=== PATIENT | male | born 1955 | race Caucasian/White ===

== ENCOUNTER 2016-07-10 13:43 | Emergency (ER) | payer BC, OTHER ==
[2016-07-10 13:50] VITALS: BP 178/101
[2016-07-10] MEDS ORDERED: Tetan/Diph/Pertus SYR(Tdap)* 0.5 ML SYR(BOOSTRIX) use SYR IM ONE (14:33)
[2016-07-10] MEDS ORDERED: Ibuprofen TAB* 400 MG PO ONE (14:33)
--- NOTE | 2016-07-10 15:01 | ED ---
Laceration/Wound HPI - History of Current Complaint Stated Complaint: RT THUMB INJURY/WC Time Seen by Provider: 07/10/16 13:55 Hx Obtained From: Patient Mechanism of Injury: Sharp/Blunt Trauma Onset/Duration: Sudden Onset, Lasting Hours, Still Present Aggravating: Movement Alleviating: Nothing Timing: Constant Onset Severity: Severe Current Severity: Moderate Pain Intensity: 5 Associated Signs & Symptoms: Pain Related Hx: Dominant Hand (Right) - Allergy/Home Medications Allergies/Adverse Reactions: Allergies Allergy/AdvReac Type Severity Reaction Status Date / Time Cat Hair Extract Allergy Unknown Swelling Verified 02/06/15 13:21 Of Face,Lips,& Throat Wheat Extract Allergy Unknown Swelling Verified 02/06/15 13:21 Of Face,Lips,& Throat dairy Allergy Severe Swelling Uncoded 02/06/15 13:20 ENVIRONMENTAL-MOLD,MILDEW,BIRDS, Allergy SWELLING Uncoded 02/06/15 13:20 OF FACE,LIPS,&THROAT Home Medications: Home Medications Ventolin HFA Inhaler* 2 puff INH PRN 07/10/16 [History] PMH/Surg Hx/FS Hx/Imm Hx Endocrine/Hematology History: Denies: Hx Bone Marrow Disease, Hx Diabetes, Hx Sickle Cell Disease, Hx Thyroid Disease, Hx Anemia Cardiovascular History: Reports: Hx Hypertension - MED Denies: Hx Angina, Hx Cardiomegaly, Hx Congestive Heart Failure, Hx Coronary Artery Disease, Hx Pacemaker/ICD, Hx Peripheral Vascular Disease, Hx Rheumatic Fever, Hx Valvular Heart Disease, Other Cardiovascular Problems/Disorders Respiratory History: Reports: Hx Sleep Apnea - current CPAP user Denies: Hx Asthma, Hx Pulmonary Edema, Hx Pulmonary Embolism, Other Respiratory Problems/Disorders GI History: Reports: Hx Gall Bladder Disease - removed 09/2011, Hx Hiatal Hernia - 10/2009 repair same time as gastric lap band Denies: Hx Cirrhosis, Hx Crohn's Disease, Hx Gastroesophageal Reflux Disease , Hx Irritable Bowel, Hx Jaundice, Hx Ulcer, Other GI Disorders History: Reports: Hx Kidney Stones Denies: Hx Kidney Infection, Hx Renal Disease - right sided, Other Problems/Disorders Musculoskeletal History: Reports: Hx Back Problems - chronic low back pain, resolved after (left) hip replacement Denies: Hx Arthritis, Hx Bursitis, Hx Tendonitis, Other Musculoskeletal History Sensory History: Reports: Hx Contacts or Glasses Denies: Hx Cataracts, Hx Glaucoma, Hx Hearing Aid Opthamlomology History: Reports: Hx Contacts or Glasses Denies: Hx Cataracts, Hx Glaucoma Neurological History: Denies: Hx Headaches, Hx Migraine, Hx Seizures, Other Neuro Impairments/ Disorders Psychiatric History: Denies: Hx Anxiety, Hx Depression, Hx Panic Disorder - Cancer History Hx Chemotherapy: No - Surgical History Surgery Procedure, Year, and Place: [place] [facility] [place]. [place] [facility] [place] w/hiatal hernia repair. 09/2011 [facility] [place] chole[place]. vasectomy; knee meniscus. tonsils/adenoids. KIDNEY STONE - LITHROTRIPSY Hx Anesthesia Reactions: Yes - "blood preesure dropped during hip surgery" Infectious Disease History: No Infectious Disease History: Denies: Hx Clostridium Difficile, Hx Hepatitis, Hx Human Immunodeficiency Virus (HIV), Hx of Known/Suspected MRSA, Hx Shingles, Hx Tuberculosis, Hx Known/ Suspected VRE, Hx Known/Suspected VRSA, History Other Infectious Disease, Traveled Outside the in Last 30 Days - Family History Known Family History: Positive: None - Social History Occupation: Employed Full-time Lives: With Family Alcohol Use: Rare Substance Use Type: Reports: None Smoking Status (MU): Former Smoker Amount Used/How Often: ?/DAY X 37 YEARS Have You Smoked in the Last Year: No Review of Systems Positive: Edema - mild distal right thumb Positive: Other - nail avulsion of the right thumb Negative: Paresthesia, Numbness All Other Systems Reviewed And Are Negative: Yes Physical Exam Triage Information Reviewed: Yes Vital Signs On Initial Exam: Initial Vitals Temp Pulse Resp BP Pulse Ox 97.7 F 65 20 178/101 97 07/10/16 13:46 07/10/16 13:46 07/10/16 13:46 07/10/16 13:46 07/10/16 13:46 Vital Signs Reviewed: Yes Appearance: Positive: Well-Appearing, Pain Distress, Obese Skin: Positive: Warm, Skin Color Reflects Adequate Perfusion, Dry, Tender - distal right thumb, Soft Head/Face: Positive: Normal Head/Face Inspection Eyes: Positive: EOMI, LESLEY, Conjunctiva Clear ENT: Positive: Hearing grossly normal Respiratory/Lung Sounds: Positive: Breath Sounds Present Cardiovascular: Positive: RRR Musculoskeletal: Positive: Strength/ROM Intact, Pain @ - distal right thumb, Edema Right - distal right thumb Neurological: Positive: Sensory/Motor Intact, Alert, Oriented to Person Place, Time, NV Bundle Intact Distally Psychiatric: Positive: Affect/Mood Appropriate AVPU Assessment: Alert Procedures - Laceration/Wound Repair 1 Location: upper extremity - right thumb Description: Irregular Anesthesia: Local, 2.0%, Lido Length, Depth and Shape: Crush injury with partial nail avulsion. Lateral aspect of proximal nail is dislodged. Betadine Prep?: No Irrigated w/ Saline (ccs): 200 Laceration/Wound Explored: clean Closure: Single Layer - Nail reimplanted and secured with suture Debridement: minimal Suture Type: Nylon - 4.0 Number of Sutures: 3 Layer Closure?: No Sterile Dressing Applied?: Yes Diagnostics - Vital Signs Vital Signs Temp Pulse Resp BP Pulse Ox 07/10/16 13:46 97.7 F 65 20 178/101 97 - Laboratory Lab Statement: Any lab studies that have been ordered have been reviewed, and results considered in the medical decision making process. - Radiology No standard instances Xray Interpretation: No Acute Changes Radiology Interpretation Completed By: Radiologist Laceration Repair Course/Dx - Differential Dx Differental Diagnoses: Abrasion, Avulsion, Dehiscence, Hematoma, Laceration, Puncture Wound - Clinical Impression Provider Diagnoses: Crushing injury of right thumb, Nail avulsion, finger Discharge - Discharge Plan Condition: Stable Disposition: HOME Patient Education Materials: Nail Avulsion (ED) Forms: *Work Release Referrals: Marquez Fiore MD [Primary Care Provider] - Solo Ohara MD [Medical Doctor] - Additional Instructions: Please call Dr. Sumner's the hand surgeon for a follow-up consultation. Keep your dressing clean, dry and in place for the next 24 hours. You may then remove and shower. Pat dry and cover with a clean, dry band-aid if you are going to be in a "dirty" environment, otherwise it can remain open to air. Do not soak the wound in any body of water until the sutures are removed. Elevate the hand above your heart and use Ibuprofen 600mg three times daily with meals for the next 5-7 days to reduce pain and swelling. Please follow the instructions for suture removal from the hand surgeon. Return to the emergency department sooner if your symptoms worsen.
--- NOTE | 2016-07-10 15:09 | RAD ---
HISTORY: Crush injury, first digit of right hand COMPARISONS: None VIEWS: 3, Frontal, lateral, and oblique views of the first digit of the right hand FINDINGS: BONE DENSITY: There is diffuse osteopenia. BONES: There is no displaced fracture or dislocation. There is well-corticated nonaggressive appearing sclerotic lesion of the distal phalanx of the first digit suggestive of a giant bone island. JOINTS: There is osteoarthritis of the interphalangeal joints and first CMC joint and first MCP joint ALIGNMENT: There is no dislocation. SOFT TISSUES: Unremarkable. OTHER FINDINGS: None. IMPRESSION: 1. OSTEOPENIA. 2. OSTEOARTHRITIS. 3. NO ACUTE OSSEOUS INJURY. IF SYMPTOMS PERSIST, RECOMMEND REPEAT IMAGING.
== END 2016-07-10 16:24 | disposition home or self-care (01) ==
LOC: ED 13:43
DX: S67.01XA Crushing injury of right thumb, initial encounter (principal); S61.101A Unspecified open wound of right thumb with damage to nail, initial encounter; Z87.891 Personal history of nicotine dependence; M85.80 Other specified disorders of bone density and structure, unspecified site; I10 Essential (primary) hypertension; G47.30 Sleep apnea, unspecified; Z87.442 Personal history of urinary calculi; X58.XXXA Exposure to other specified factors, initial encounter; Y92.9 Unspecified place or not applicable
CPT/HCPCS: 11760; 90471; 90715; 99282; A9270-GY

== ENCOUNTER 2016-07-22 05:50 | Inpatient (IN) | payer BC ==
--- NOTE | 2016-07-16 16:43 | HP ---
HISTORY AND PHYSICAL: DATE OF ADMISSION: He is entering the hospital for right total knee replacement on 07/22/16. CHIEF COMPLAINT: Right knee pain and deformity. HISTORY OF PRESENT ILLNESS: This 61-year-old man has had severe arthritis of the right knee for the past year, increasing pain and problems with limited walking distance, difficulty with stairs, he has been using the brace, and because of the severe arthritis and it has been no longer responsive to nonoperative care, we have recommended a right total knee replacement. PAST MEDICAL HISTORY: He has a history of kidney stones. MEDICATIONS: 1. He used an inhaler for asthma. 2. Centrum Silver once a day. 3. Aspirin 81 mg each day. 4. Prilosec. ALLERGIES: He is allergic to WHEAT, MILK, and ENVIRONMENTAL THINGS. He is not allergic to penicillin and he is okay to have Ancef. SOCIAL HISTORY: He stopped smoking in 2008. He has a rare alcoholic drink. REVIEW OF SYSTEMS: No history of any liver problems. No cancers. No history of chest pain and no history of shortness of breath PHYSICAL EXAMINATION GENERAL: Current examination, antalgic gait on the right with right knee varus deformity. VITAL SIGNS: The height is 65 inches, weight 210, blood pressure 140/82, pulse is 86, temperature is 97, respirations are 14. HEENT: Head is NC/AT. LUNGS: Clear bilaterally. HEART: Regular. S1, S2 normal. No murmurs or gallops. ABDOMEN: Round, soft, nontender. There is no organomegaly. MUSCULOSKELETAL: Right knee limited extension, stable MCL and LCL. Some effusion. The posterior tibial pulse is 2+ on the right. NEUROLOGICAL: Cranial nerves are grossly intact. DIAGNOSTIC STUDIES: The x-ray shows severe arthritis of the right knee in the medial compartment with [id number], sclerosis, osteophyte formation, and varus. IMPRESSION: Severe arthritis of the right knee. PLAN: Right total knee replacement. Goals, risks, and complications have been reviewed with him and his questions were answered. [id number]/CPS #: [id number] MTDD
[2016-07-22] MEDS ORDERED: Buffered Lidocaine 1% SYR 3ML* 3 ML/SYR SYRINGE INTRADERM ONE (06:00)
[2016-07-22] MEDS ORDERED: Famotidine IV* 10 MG/ML 2 ML (20 mg) IV ONE (06:00)
[2016-07-22] MEDS ORDERED: Dexamethasone IV* 4 MG/ML 1 ML (4 MG) IV SLOW PU ONE (06:00)
[2016-07-22] MEDS ORDERED: ceFAZolin 2 GM PREMIX (*) 2 GM/50 ML BAG IVPB ONE (06:09)
[2016-07-22] MEDS ORDERED: Dexamethasone IV* 4 MG/ML 1 ML (4 MG) ONE (06:09)
[2016-07-22] MEDS ORDERED: Famotidine IV* 10 MG/ML 2 ML (20 mg) ONE (06:09)
[2016-07-22] MEDS ORDERED: Buffered Lidocaine 1% SYR 3ML* 3 ML/SYR SYRINGE ONE (06:10)
[2016-07-22] MEDS ORDERED: Midazolam* 1 MG/ML 5 ML VIAL (5 MG) ONE (06:54)
[2016-07-22] MEDS ORDERED: Morphine PF AMP (0.5MG/ML)* 5 MG/10 ML AMP ONE (06:54)
[2016-07-22] MEDS ORDERED: fentaNYL* 50 MCG/ML 2 ML VIAL (100 MCG VIAL) ONE (06:54)
[2016-07-22] MEDS ORDERED: DiMENhydriNATE IV* 50 MG/ML VIAL IV PUSH PRN ×2 (07:15→11:21)
[2016-07-22] MEDS ORDERED: PROCHLORPERAZINE INJ 5 MG/ML 2 ML VIAL IV PRN ×2 (07:15→11:21)
[2016-07-22] MEDS ORDERED: Scopolamine 1.5 mg* PATCH TRANSDERM PRN (07:15)
[2016-07-22] MEDS ORDERED: Ondansetron INJ* 2 MG/ML VIAL IV PRN ×3 (07:15→23:50)
[2016-07-22] MEDS ORDERED: fentaNYL* 50 MCG/ML 2 ML VIAL (100 MCG VIAL) IV PRN (07:15)
[2016-07-22] MEDS ORDERED: Propofol* 10 MG/ML 20 ML BTL IV PUSH ONE (08:04)
[2016-07-22] MEDS ORDERED: Dexmedetomidine* 200 MCG/2 ML 2 ML VIAL ONE (08:04)
[2016-07-22] MEDS ORDERED: Bupivacaine 0.5% SDV PF* 30 ML VIAL ONE ×2 (08:04→10:27)
[2016-07-22] MEDS ORDERED: traZODone TAB* 50 MG TAB PO PRN (11:15)
[2016-07-22] MEDS ORDERED: Acetaminophen TAB* 325 MG PO PRN (11:15)
[2016-07-22] MEDS ORDERED: Naloxone* 0.4 MG/ML 1 ML VIAL IV PRN (11:21)
[2016-07-22] MEDS ORDERED: oxyCODONE/Acetamin 5/325 MG* TAB PO PRN ×2 (11:21→23:50)
[2016-07-22] MEDS ORDERED: diPHENhydraMINE IV* 50 MG/ML 1 ml VIAL (BENADRYL) IV PRN ×2 (11:21→23:50)
[2016-07-22] MEDS ORDERED: Nalbuphine* 20 MG/ML 1 ML VIAL IV PRN (11:21)
[2016-07-22] MEDS ORDERED: Albuterol HFA INHALER* 8 gm MDI INH PRN (11:31)
--- NOTE | 2016-07-22 12:09 | RAD ---
Indication: Postop right knee replacement. 2 views of the right knee demonstrates bipolar knee arthroplasty in satisfactory position. IMPRESSION: Right knee replacement in satisfactory position.
[2016-07-22] MEDS: ceFAZolin 1 GM in Dextrose (*) 1 GM/50 ML BAG IVPB SCH ×2 (16:13→21:54)
[2016-07-22] MEDS: Lisinopril TAB* 10 MG PO SCH (18:00)
[2016-07-22] MEDS: Ferrous Sulfate TAB* 325 MG PO SCH (20:20)
[2016-07-22] MEDS: Docusate CAP* 100 MG PO SCH (20:21)
--- NOTE | 2016-07-22 21:06 | OP ---
DATE OF OPERATION: 07/22/16 - ROOM #331 DATE OF : 51 SURGICAL CARE: Right knee. SURGEON: Martín Gray MD BIOSTATISTICS PROFESSOR: MIKE Vazquez STARTING SHEET TANK OPERATOR: Coco Mcdowell, registered nurse surgical services. ANESTHESIOLOGIST: Flynn Willett MD ANESTHESIA: Right saphenous nerve block right thigh and spinal with Duramorph IV sedation. PRE-OP DIAGNOSIS: Right knee severe arthritis in the medial compartment bone on bone with varus deformity. POST-OP DIAGNOSIS: Right knee severe arthritis in the medial compartment bone on bone with varus deformity and moderate to severe patellofemoral arthritis as well. OPERATIVE PROCEDURE: Right total knee replacement. COMPONENTS: Edin Persona knee posterior stabilized size 10 femur, a size F tibia, a 35 patella, and a 10 articular surface. COMPLICATIONS: There were no complications. DRAINS: Two blood collections drains, right knee at the end of the case. ESTIMATED BLOOD LOSS: 250 mL. REPLACEMENT: Crystalloid fluids. OPERATIVE INDICATIONS: Severe arthritis with deformity and it has been no longer responsive to nonoperative care. DESCRIPTION OF PROCEDURE: The patient was brought to the operating room and placed on the operating room table in a supine position. Following the administration of the anesthetic done supine on his thigh and in sitting position for the spinal and he was returned to the supine position, a Cox catheter was inserted. The right proximal thigh was wrapped with a tourniquet. The right knee was noted to have a few degrees of flexion contracture and the foot pulses were 2+ both of them. The right leg was given a preliminary Chlorhexidine prep after the tourniquet was applied to the proximal thigh and the final prep was done with ChloraPrep from the tourniquet to the tips of the toes. After prepping and draping and sealing off, we did our universal protocol time-out confirming Fady Beal, and a plan for right total knee replacement. We all agreed and we proceeded. The surgical care was done without tourniquet except at the clean up and cementing phase of the case when the tourniquet was utilized. Most of the surgery was done with a knee acutely flexed. The surgical incision went from 2 fingerbreadths proximal to the superior pole of the patella to the medial aspect of the tibial tubercle. The patient had some prepatellar bursitis with clear fluid and some scarring. The knee was noted medial, parapatellar, and the knee joint had clear goldish synovial fluid abundant. His tissues around the knee were edematous and had clear fluid within them. After entering, careful hemostasis was checked and achieved throughout the case utilizing electrocautery. On the tibia, the anteromedial soft tissues were elevated subperiosteally going around to the deep MCL and then to the posterior medial corner of the knee. The patient had complete eburnation of bone medial tibial plateau, medial femoral condyle both of large osteophytes closing the intercondylar notch, osteophytes were large on the patella, superiorly, inferiorly, mediolateral and loss of cartilage there as well. The patella was made so that it could be everted and the infrapatellar fat pad was removed. Synovectomy completed around the patella. His ACL had edema and was thickened, but was in continuity. The ACL was carefully removed after removing osteophytes. The PCL was uplifted from its femoral origins and with the medial release and the posterior medial release, the tibia was made so that it could gradually be subluxated for from under the femur. The lateral meniscus was carefully excised and in the course of the case , the lateral geniculate was visualized and carefully coagulated. The distal anterior femur was exposed subperiosteally for referencing and measuring. Some superior and medial synovectomy was completed. The anterior horn of the medial meniscus was carefully excised. The proximal tibial cut was made. First our goal here was to remove just a 1 mm or 2 from the medial tibia and 10 to 15 cm from the lateral tibia and have a tibial surface that would be perpendicular to the long axis of the tibia and have a slight posterior slope. After this cut was completed, the tibia later had to be cut by 4 more millimeters because we are tied in extension and flexion. The femoral intramedullary drill was utilized. The femoral canal was suctioned to discourage embolization. The femoral cutter distally was applied with 6 degrees of valgus and on the one because of some flexion and contracture. The distal femoral cut was completed. The extension gap looked a little bit tight and was a little tight. We then finished removal of the posterior horn lateral meniscus, the PCL posterior horn medial meniscus carefully preserving the MCL and in the osteophyte posteromedial femoral condyle. At this point, we were tied in extension and flexion. The tibia was re-cut by 4 mm and this allowed nice ligamentous balance in extension with a 10 mm block and a 90 degrees of flexion with a 10 mm block. The large tibial osteophyte was removed medially and posteromedially. The femur was completed for the size 10 with anterior and posterior chamfering and anterior and posterior cuts. The femur was then completed with the intercondylar cut out and anchoring holes made in the condyle. The tibia was completed for the size after the knee was articulated and extended with an F tibia, 10 articular surface and the 10 femur with full knee extension, stable ligaments in extension, and stable ligaments in 90 degrees of flexion. The patella was cut flat and 35 was chosen. Three drill holes were made and these were under cut. A lateral release was not necessary. The leg was exsanguinated. The tourniquet elevated to 275. The femoral canal was cleaned x6 with saline suctioned empty bone plug inserted. The knee was cleaned in extension with 2 L of pulsed saline irrigation including medial and lateral gutters. The knee was flexed. Retractors were put into position and all the bony surfaces were cleaned in flexion with pulsed saline once again and all surfaces were dried. The cement was mixed and the components were cemented into position, patella followed by tibia, followed by femur, each component was impacted, excess cement was removed and the knee was articulated and extended during the final hardening. The pericapsular soft tissues were infiltrated with Marcaine 0.5% with epinephrine posteromedial, medial, and lateral. We checked posteriorly and irrigated carefully with saline. A careful hemostasis was checked and achieved during the closure. The quadriceps mechanism reapproximated with interrupted #1 Polysorb sutures in a [id number] fashion. The opening here went 3 to 4 cm proximal to the superior pole of the patella staying as close to the vastus medialis muscle as possible for good tendon healing. The closure then down to the medial retinaculum. Drains were brought out to superolateral suprapatellar pouch. We irrigated during closure twice with pulse saline once again and watched for careful hemostasis. The distal tissues were closed with interrupted 0 Polysorb. The deep bursa closed with 0 Polysorb, the superficial subcu closed with a 3-0 Polysorb, and then the skin closed with kati. The skin was washed and dried and covered with Betadine soaked release on the surgery and the 2 drains and sterile gauze, sterile Webril, cryotherapy cuff, 2 ABD pads, 2 loosely applied 6-inch Chao bandages. The knee was extended completely and flexed completely during closure multiple times flexing the knee while pass 120 degrees and at the end of the case, the dorsalis pedis and posterior tibial pulses were both noted to be 2+. The dressing was completed and the patient returned to the hospital brought into recovery room in stable and satisfactory condition and having tolerated the procedure very well. CC: Dr. Fiore, [facility] * [id number] #: [id number] MTDD
[2016-07-22] MEDS ORDERED: oxyCODONE TAB* 5 MG TAB PO PRN (23:50)
[2016-07-23] MEDS: ceFAZolin 1 GM in Dextrose (*) 1 GM/50 ML BAG IVPB SCH (04:08)
[2016-07-23] MEDS: Morphine INJ* 2 MG/ML 1 ML CARPUJECT IV PRN ×2 (04:15→19:29)
[2016-07-23] MEDS: oxyCODONE/Acetamin 5/325 MG* TAB PO PRN ×4 (04:17→23:36)
[2016-07-23 06:12] LABS: Hematocrit 31 % (42-52); Hemoglobin 10.4 g/dl (14.0-18.0)
[2016-07-23 06:30] LABS: BUN/Creatinine Ratio 27.5 (8-20); Calcium 8.6 mg/dL (8.6-10.3); EGFR African American 125.6 (>60); EGFR Non-African American 97.6 (>60); Potassium 3.5 mmol/L (3.5-5.0)
[2016-07-23] MEDS: oxyCODONE TAB* 5 MG TAB PO PRN ×3 (07:13→17:41)
[2016-07-23] MEDS ORDERED: Pneumococcal *Vac Polyvalent 0.5 ML VIAL IM ONE (09:00)
[2016-07-23] MEDS: Aspirin TAB* 325 MG PO SCH (10:10)
[2016-07-23] MEDS: Ferrous Sulfate TAB* 325 MG PO SCH ×2 (10:11→20:55)
[2016-07-23] MEDS: amLODIPine TAB* 5 MG PO SCH (10:11)
[2016-07-23] MEDS: Vitamin THERAPEUTIC TAB PO SCH (10:11)
[2016-07-23] MEDS: Docusate CAP* 100 MG PO SCH ×2 (10:16→20:55)
[2016-07-23] MEDS: Enoxaparin(*) 30 MG/0.3 ML SYR SUBCUT SCH (12:27)
[2016-07-23] MEDS: Lisinopril TAB* 10 MG PO SCH (17:37)
[2016-07-24] MEDS: oxyCODONE TAB* 5 MG TAB PO PRN ×2 (05:05→22:01)
[2016-07-24] MEDS ORDERED: Magnesium Hydroxide LIQ* 30 ML UDC PO PRN (07:00)
[2016-07-24 07:06] LABS: Hematocrit 32 % (42-52); Hemoglobin 10.9 g/dl (14.0-18.0)
[2016-07-24] MEDS: Morphine INJ* 2 MG/ML 1 ML CARPUJECT IV PRN ×2 (08:15→17:14)
[2016-07-24] MEDS ORDERED: Morphine INJ* 4 MG/ML 1 ML CARPUJECT IV ONE (09:00)
[2016-07-24] MEDS: Vitamin THERAPEUTIC TAB PO SCH (10:00)
[2016-07-24] MEDS: Aspirin TAB* 325 MG PO SCH (10:00)
[2016-07-24] MEDS: Ferrous Sulfate TAB* 325 MG PO SCH ×2 (10:01→22:01)
[2016-07-24] MEDS: Docusate CAP* 100 MG PO SCH ×2 (10:01→22:01)
[2016-07-24] MEDS: amLODIPine TAB* 5 MG PO SCH (10:01)
[2016-07-24] MEDS: Enoxaparin(*) 30 MG/0.3 ML SYR SUBCUT SCH (12:07)
[2016-07-24] MEDS: oxyCODONE/Acetamin 5/325 MG* TAB PO PRN ×2 (12:10→15:24)
[2016-07-24] MEDS: Lisinopril TAB* 10 MG PO SCH (17:09)
[2016-07-25] MEDS: Morphine INJ* 2 MG/ML 1 ML CARPUJECT IV PRN (00:17)
[2016-07-25] MEDS: oxyCODONE/Acetamin 5/325 MG* TAB PO PRN (03:46)
[2016-07-25 06:58] LABS: Hematocrit 35 % (42-52); Hemoglobin 11.4 g/dl (14.0-18.0)
[2016-07-25] MEDS ORDERED: Scopolamine PATCH Remove* 1 NOTE MISC PATCH OFF ONE (07:15)
--- NOTE | 2016-07-25 07:34 | PN ---
Progress Note - Progress Note SOAP: Subjective: [61 y/o male s/p R TKA 07/22/2016. Patient in pain this AM, did not have pain medication yet, states pain medication takes away pain very well and does not have side effects such as N/V. Working well with PT, a bit apprehensive about going home. Reviewed with Physical therapist- reports patient meeting goals well. ] Objective: [General- Well appearing, NAD. MSK- Incision R knee C/D/I, no erythema, kati intact. Moderate swelling over knee, mild tenderness to light touch, Neg HOmans B/L, sensation to light touch intact. PT pulses 2+ b/l. + Dorsi/ plantarflexion. ] Vital Signs Temp Pulse Resp BP Pulse Ox 99.8 F 92 16 163/81 92 07/25/16 00:19 07/25/16 00:19 07/25/16 05:46 07/25/16 00:19 07/25/16 00:19 Laboratory Results - last 24 hr 07/25/16 06:11 Hgb 11.4 L Hct 35 L Assessment: [61 y/o male s/p R TKA 07/22/2016] Plan: [- DVT prophy- ASA daily - Continue home PT/ OT - Follow up with Dr. Gray within 4 weeks - [place] to be removed by [facility] - D/C today. - Continue pain regimen ]
[2016-07-25 07:55] VITALS: BP 142/77
[2016-07-25] MEDS: Aspirin TAB* 325 MG PO SCH (08:33)
[2016-07-25] MEDS: Vitamin THERAPEUTIC TAB PO SCH (08:33)
[2016-07-25] MEDS: amLODIPine TAB* 5 MG PO SCH (08:33)
[2016-07-25] MEDS: Ferrous Sulfate TAB* 325 MG PO SCH (08:33)
[2016-07-25] MEDS: Docusate CAP* 100 MG PO SCH (08:33)
[2016-07-25] MEDS: oxyCODONE TAB* 5 MG TAB PO PRN (08:45)
--- NOTE | 2016-07-25 11:14 | DS ---
Discharge Summary Date of Admission: 07/22/2016 Date of Discharge: 07/25/2016 Provider: Esequiel Gray Principle Diagnosis: RIGHT total knee replacement due to severe end stage OA Secondary Diagnoses: See H&P Principle procedure: RIGHT total knee arthroplasty Consultations: Physical therapy, occupational therapy. HPI: Refer to H&P Hospital Course: The patient was admitted on 07/22/2016 and underwent a right total knee arthroplasty. He tolerated the procedure well and there were no complications. The patient had a nerve block with general anesthesia and was quite comfortable in the immediate postoperative period. On POD#1 the patients H&H was 10.4/31. Dressing was CDI, he was neurovascularly intact with good sensation distal to the right knee. He could demonstrate dorsi and plantar flexion with good strength. Participation in physical and occupational therapy was begun. Pain management was controlled with PO percocet. On POD#2 the urinary catheter was discontinued and the patient was able to void spontaneously. The dressing was changed and the wound was found to be benign with minimal drainage and erythema. Vital signs were stable and the patient was afebrile. POD#3 bowel and bladder had normalized and the patient was cleared by physical therapy for safe discharge to home with services. He will continue with the exercises learned with physical therapy and arrangements were made for visiting home physical therapy as well. At discharge the H&H was 11.4/ 35 and vital signs were stable. The patient was discharged home with Aspirin 325mg daily for DVT prophylaxis. The patient will resume the home medications as indicated in the discharge instructions. [place] will be removed in 10-14 days by VNS. New medications at discharge: Percocet 5/325 mg 1-2 tabs po Q4-6 hours prn pain Colace 100 mg 1 po BID Aspirin 325 mg PO daily Condition: Stable Disposition: Home with home health and PT. Follow up: Patient will follow up with Dr. Gray in 4 weeks at [facility] Orthopedics Vital Signs Temp 98.2 F 07/25/16 07:39 Pulse 83 07/25/16 07:39 Resp 17 07/25/16 10:45 BP 142/77 07/25/16 07:39 Pulse Ox 96 07/25/16 08:00 Intake & Output 07/24/16 07/25/16 07/25/16 18:59 06:59 18:59 Intake Total 1020 1300 Output Total 1475 825 Balance -455 475 Intake: Oral 1020 1300 Output: Urine 1425 825 Emesis 50 Active Medications Generic Name Dose Route Start Last Admin Trade Name Freq PRN Reason Stop Dose Admin Acetaminophen 650 mg 07/22/16 11:15 Tylenol Tab* PO Q4H PRN PAIN OR TEMPERATURE Albuterol 2 puff 07/22/16 11:31 Ventolin Hfa Inhaler* INH Q4H PRN Allergy Symptoms Amlodipine Besylate 5 mg 07/23/16 09:00 07/25/16 08:33 Norvasc Tab* PO 5 mg DAILY CANDIS Administration Aspirin 325 mg 07/23/16 09:00 07/25/16 08:33 Aspirin Tab* PO 325 mg DAILY CANDIS Administration Diphenhydramine HCl 25 mg 07/22/16 23:50 Benadryl Iv* IV Q6H PRN itching Docusate Sodium 100 mg 07/22/16 21:00 07/25/16 08:33 Colace Cap* PO 100 mg BID CANDIS Administration Enoxaparin Sodium 30 mg 07/23/16 12:00 07/24/16 12:07 Lovenox(*) SUBCUT 30 mg Q24H CANDIS Administration Ferrous Sulfate 325 mg 07/22/16 21:00 07/25/16 08:33 Ferrous Sulfate Tab* PO 325 mg BID CANDIS Administration Lactated Ringer's 1,000 mls @ 100 mls/hr 07/22/16 12:00 07/23/16 11:31 Lactated Ringers 1000 Ml Bag* IV 100 mls/hr PER RATE CANDIS Administration Lisinopril 40 mg 07/22/16 18:00 07/24/16 17:09 Prinivil Tab* PO 40 mg QPM CANDIS Administration Magnesium Hydroxide 30 ml 07/24/16 07:00 07/24/16 22:01 Milk Of Magnesia Liq* PO 30 ml Q6H PRN Administration constipation Morphine Sulfate 3 mg 07/22/16 23:50 07/25/16 00:17 Morphine Inj (Syringe)* IV 3 mg Q30M PRN Administration PAIN - SEVERE Multivitamins 1 tab 07/23/16 09:00 07/25/16 08:33 Theragran Tab* PO 1 tab DAILY CANDIS Administration Ondansetron HCl 4 mg 07/22/16 23:50 07/24/16 17:09 Zofran Inj* IV 4 mg Q6H PRN Administration nausea Oxycodone HCl 10 mg 07/22/16 23:50 07/25/16 08:45 Roxycodone Tab* PO 10 mg Q4H PRN Administration PAIN - SEVERE Oxycodone HCl 5 mg 07/22/16 23:50 Roxycodone Tab* PO Q4H PRN PAIN - MODERATE Oxycodone/Acetaminophen 1 tab 07/22/16 23:50 Percocet 5/325 Tab* PO Q3H PRN PAIN - MILD Oxycodone/Acetaminophen 2 tab 07/22/16 23:50 07/25/16 03:46 Percocet 5/325 Tab* PO 2 tab Q3H PRN Administration PAIN - MODERATE Trazodone HCl 25 mg 07/22/16 11:15 Desyrel Tab* PO BEDTIME PRN insomnia Laboratory Results - last 24 hr 07/25/16 06:11 Hgb 11.4 L Hct 35 L
== END 2016-07-25 13:07 | disposition home health service (06) | DRG 302 ==
LOC: AA 05:50 → SSU 14:05
PROVIDERS: ADMIT Orthopaedic Surgery; ATTEND Orthopaedic Surgery
PROC: 0SRC0J9 Replacement of Right Knee Joint with Synthetic Substitute, Cemented, Open Approach (ICD-10-PCS; principal; 2016-07-22 07:30)
DX: M17.11 Unilateral primary osteoarthritis, right knee (principal); D62 Acute posthemorrhagic anemia; I10 Essential (primary) hypertension; Z79.82 Long term (current) use of aspirin; E66.9 Obesity, unspecified; Z91.048 Other nonmedicinal substance allergy status; Z87.442 Personal history of urinary calculi; Z98.84 Bariatric surgery status; Z96.642 Presence of left artificial hip joint; Z82.49 Family history of ischemic heart disease and other diseases of the circulatory system; Z83.3 Family history of diabetes mellitus; Z88.8 Allergy status to other drugs, medicaments and biological substances; M21.161 Varus deformity, not elsewhere classified, right knee; G47.33 Obstructive sleep apnea (adult) (pediatric); G43.909 Migraine, unspecified, not intractable, without status migrainosus; Z91.018 Allergy to other foods; Z87.891 Personal history of nicotine dependence; Z68.36 Body mass index [BMI] 36.0-36.9, adult
CPT/HCPCS: 36415; 80048; 85014; 85018; 88305; 88311; 90732; A9270-GY; C1776; J0690; J1100; J1650; J2250; J2270; J2405; J2704; J3010